=== PATIENT | female | born 1960 | race Caucasian/White ===

== ENCOUNTER 2016-10-03 13:38 | Day surgery (SDC) | payer OTHER ==
[~2016-10-03] VITALS: Ht 167.6 cm; Wt 97.0 kg
[~2016-10-03 13:38] MED LIST: CALC600T12 PO; LEVO75CA2 PO; METF500T4 PO; [UNRECOGNIZED DRUG - CODE] PO; fentaNYL-PF 50 mCg/mL 2 mL Inj IVPUSH PRN
[2016-10-03 14:07] VITALS: BP 122/76; PULSE 70; RESP 14; O2SAT 96
[2016-10-03 15:17] VITALS: BP 152/99; PULSE 66; RESP 14; O2SAT 95
[2016-10-03 15:27] VITALS: BP 142/83; PULSE 62; RESP 16; O2SAT 97
--- NOTE | 2016-10-03 15:30 | ENDO ---
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 PROCEDURE PERFORMED: Upper endoscopy with biopsies. SURGEON: Chante Garcia MD INSTRUMENT: Olympus GIF H 180 J. MEDICATIONS: 1. Versed 10 mg. 2. Fentanyl 200 mcg. 3. Anesthesia is recommended for additional endoscopy as the patient had moderately poor tolerance with maximal sedation. 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 She has had at least three endoscopies in the last 15 years, and also had a Nan fundoplication by Dr. Indra Vizcarra approximately 12 years ago. She presented for surveillance endoscopy with biopsies. FINDINGS: 1. 4 cm of Pabon esophagus was seen, with the top of the Pabon's at 33 cm, and the diaphragmatic hiatus at 37 cm. There was mild mucosal nodularity at the superior aspect of the Pabon's, and multiple biopsies were taken at this site. 2. Two tiny antral ulcers, biopsied. 3. Mild mucosal prominence of the duodenum, biopsied. 4. Intact Nan fundoplication without hiatal hernia. DESCRIPTION OF PROCEDURE: The patient was brought to the endoscopy suite, and placed in the left lateral decubitus position. Moderate anesthesia was induced. The endoscope was advanced to the proximal esophagus. Pabon esophagus was seen from 33-37 cm. There was mild mucosal nodularity at the superior aspect of the Pabon's. The esophagus was otherwise normal. Four quadrant biopsies were taken every 2 cm from above the Pabon's at 31 cm, down to the diaphragmatic hiatus at 37 cm. The endoscope was advanced into the stomach and retroflexed. An intact Nan fundoplication was seen, without hiatal hernia. The stomach was normal with the exception of two very small trace ulcers in the antrum, one was biopsied. The pylorus was normal. The endoscope was advanced into the first portion of the duodenum which was normal. The second portion of the duodenum had mild mucosal prominence which was biopsied. The endoscope was advanced to the proximal aspect of the third portion of the duodenum, normal. The endoscope was withdrawn. The patient tolerated the procedure only moderately well, and for this reason, anesthesia is recommended for additional endoscopies. SPECIMENS: 1. Second portion of the duodenum. 2. Antral ulcers x 2. 3. Esophagus at 33 cm. 4. Esophagus at 35 cm. 5. Esophagus at 31 cm. 6. Esophagus at 37 cm. COMPLICATIONS: None. ESTIMATED BLOOD LOSS: 2 mL. MTDD
[2016-10-03 15:37] VITALS: BP 133/85; PULSE 50; RESP 16; O2SAT 100
--- NOTE | 2016-10-07 15:05 | PATH ---
SURGICAL PATHOLOGY Attending Physician:Chante Garcia MD CASE STATUS: Signed Out PATIENT NAME: KIKA DEE PID: [id number] : 1960 DATE COLLECTED:10/03/2016 00:00 SPECIMEN: 1: Duodenum, Biopsy 2: Stomach, Antrum, Biopsy 3: Stomach, Antrum, Biopsy 4: Esophagus, Biopsy 5: Esophagus, Biopsy 6: Esophagus, Biopsy 7: Esophagus, Biopsy CLINICAL HISTORY: 1: DUODENUM SECOND PORTION 2: ANTRAL ULCER BIOPSY 3: ANTRAL BIOPSY #2 4: ESOPHAGUS BIOPSY 33CM 5: ESOPHAGUS BIOPSY 35CM 6: ESOPHAGUS BIOPSY 31CM 7: ESOPHAGUS 37 FINAL DIAGNOSIS: 1. Duodenum 2nd Portion Biopsy: Duodenal mucosa with no diagnostic alterations. Negative for inflammation, dysplasia and malignancy. 2. Antral Ulcer Biopsy: Gastric antral mucosa with reactive changes and vascular congestion. Negative for intestinal metaplasia. Negative for Helicobacter organisms. Negative for dysplasia and malignancy. 3. Antral Biopsy #2: Gastric body and antral mucosa with mild reactive changes. Negative for Helicobacter organisms. Negative for intestinal metaplasia. Negative for dysplasia and malignancy. 4. Esophagus Biopsy at 33 CM: Intestinal metaplasia consistent with Pabon' s esophagus. Negative for dysplasia and malignancy. 5. Esophagus Biopsy at 35 CM: Intestinal metaplasia consistent with Pabon' s esophagus. Mild active inflammation with erosion. Negative for dysplasia and malignancy. 6. Esophagus Biopsy at 31 CM: Squamous mucosa with no diagnostic alterations. Negative for intestinal metaplasia. Negative for dysplasia and malignancy. 7. Esophagus Biopsy at 37 CM: Gastric cardia-type mucosa with no diagnostic alterations. Negative for intestinal metaplasia. Negative for dysplasia and malignancy. ICD10 K22.70 GROSS DESCRIPTION: The specimen is received in seven formalin filled containers labeled with the patient's name. 1). The specimen is sublabeled "duodenum-second part" and consists of a 0.3 x 0.2 x 0.2 CM portion of tissue which is entirely submitted in cassette 1A. 2). The specimen is sublabeled "antral ulcer" and consists of a 0.2 x 0.2 x 0.2 CM portion of tissue which is entirely submitted in cassette 2A. 3). The specimen is sublabeled "antral BX #2" and consists of 2 portions of tissue which aggregate to 0.3 x 0.3 x 0.2 CM. The specimen is entirely submitted in cassette 3A. 4). The specimen is sublabeled "esophagus 33 CM" and consists of multiple portions of tissue which aggregate to 0.5 x 0.5 x 0.2 CM. The specimen is entirely submitted in cassette 4A. 5). The specimen is sublabeled "esophagus 35 CM" consists of 3 portions of tissue which aggregate to 0.3 x 0.3 x 0.2 CM. The specimen is entirely submitted in cassette 5A. 6). The specimen is sublabeled "esophagus 31 CM" and consists of 4 portions of tissue which aggregate to 0.3 x 0.3 x 0.2 CM. The specimen is entirely submitted in cassette 6A. 7). The specimen is sublabeled "esophagus 37 CM " and consists of 3 portions of tissue which aggregate to 0.4 x 0.4 x 0.3 CM. The specimen is entirely submitted in cassette 7A. 10/04/2016 [facility] MICRO DESCRIPTION: Please see diagnosis. ICD-9 CODES: CPT CODES: 1: 81795 2: 16610 3: 09311 4: 38296 5: 40177 6: 76215 7: 73812 Electronically Signed Out Theodora Palomino MD [facility] [address], [place] [address] Technical component performed at [facility], [address] [place] [address] Ave[address], [place], [address]
== END 2016-10-03 23:59 | disposition home or self-care (01) ==
LOC: END 13:38
PROVIDERS: ATTEND Surgery
DX: K22.70 Barrett's esophagus without dysplasia (principal); K25.9 Gastric ulcer, unspecified as acute or chronic, without hemorrhage or perforation; E06.3 Autoimmune thyroiditis; R73.03 Prediabetes
CPT/HCPCS: 43239; 99153; G0500; J2250; J7120